=== PATIENT | male | born 1975 | race Caucasian/White ===

== ENCOUNTER 2025-01-27 23:10 | Emergency (ER) | payer MEDICAID ==
[~2025-01-27] VITALS: Ht 170.2 cm; Wt 91.0 kg
[2025-01-27 23:14] VITALS: O2SAT 100
[2025-01-27] MEDS: HYDROCODONE/ACETAMINOPHEN 5/325MG TABLET PO STA (23:57)
[2025-01-27] MEDS: IBUPROFEN 600MG TABLET PO STA (23:57)
[2025-01-28 00:09] LABS: BASOPHILS % 0.4 % (0.0-2.0); EOSINOPHILS % 0.3 % (0.0-5.0); HEMATOCRIT. 44.5 % (42.0-52.0); HEMOGLOBIN. 15.2 g/dL (14.0-18.0); LYMPHOCYTES % 21.1 % (20.0-50.0); MEAN CORPUSCULAR HEMOGLOBIN 30.6 pg (28.0-32.0); MEAN CORPUSCULAR HGB CONC 34.2 g/dL (31.0-37.0); MEAN CORPUSCULAR VOLUME 89.6 fL (80.0-94.0); MEAN PLATELET VOLUME 11.5 fl (7.4-10.4); MONOCYTES % 8.6 % (2.0-8.0); NEUTROPHILS % 69.6 % (40.0-76.0); PLATELET 124 x1000/uL (130-400); RED BLOOD CELL COUNT 4.97 mill/uL (4.7-6.1); RED CELL DISTRIBUTION WIDTH 13.7 % (11.6-14.6); WHITE BLOOD COUNT 10.3 x1000/uL (4.5-11.0)
[2025-01-28 00:15] LABS: PROTHROMBIN TIME 10.7 sec (9.6-11.0)
[2025-01-28 00:41] LABS: CHLORIDE 107 mEq/L (98-107); POTASSIUM 4.3 mEq/L (3.5-5.1); SODIUM 138 mEq/L (136-145)
[2025-01-28 00:42] LABS: CARBON DIOXIDE 23 mEq/L (21-32)
[2025-01-28 00:47] LABS: CREATININE 0.9 mg/dL (0.6-1.3); GLUCOSE 197 mg/dL (70-105); UREA NITROGEN BLOOD 11 mg/dL (9-23)
[2025-01-28 00:50] LABS: TROPONIN I HIGH SENSITIVITY 29 ng/L (3.0-53)
[2025-01-28] MEDS ORDERED: IBUP-2030 MT (01:06)
[2025-01-28 01:36] VITALS: BP 152/102; PULSE 83; RESP 18; TEMP 36.6; O2SAT 97
== END 2025-01-28 01:50 | disposition home or self-care (01) ==
LOC: ER 23:10
DX: R07.89 Other chest pain (principal)
CPT/HCPCS: 36415; 71045; 80048; 84484; 85025; 93005; 99284; 99285